=== PATIENT | female | born 2000 | race Two or more races ===

== ENCOUNTER 2024-02-29 19:35 | Emergency (ER) | payer MEDICAID, SELFPAY ==
[2024-02-29 19:36] VITALS: BMI 29.8
[2024-02-29 19:52] VITALS: BP 149/93; PULSE 104; RESP 19; TEMP 36.8; O2SAT 98
--- NOTE | 2024-02-29 20:06 | EDNOTE_ITS ---
ED Ear RME/HPI General Chief complaint: Ear Stated complaint: LUMP OM BACK OF LEFT EAR Time Seen by Provider: 02/29/24 20:03 Source: patient Arrival date/time: 02/29/24 19:35 23-year-old female presents emergency department complaining of left ear pain that started today. Patient denies any fever, chills, cough, nausea vomiting, sore throat, shortness of breath, or any other associated symptom. Mode of arrival: ambulatory Limitations: no limitations Related Data Home Medications ?Medication ?Instructions ?Recorded ?Confirmed vits no.124-ferrous fum tab 11/05/22 27 mg iron-folic acid 800 mcg tablet ( Vitamin) Previous Rx's ?Medication ?Instructions ?Recorded topiramate 25 mg tablet (Topamax) 25 mg PO QDAY #30 tabs 11/13/23 amoxicillin 875 mg-potassium 1 tab PO BID 7 days #14 tabs 02/29/24 clavulanate 125 mg tablet ofloxacin 0.3 % ear drops 10 drp otic (ear) QDAY 7 days #5 mL 02/29/24 Allergies Allergy/AdvReac Type Severity Reaction Status Date / Time No Known Allergies Allergy Verified 04/09/23 00:03 Review of Systems Review of Systems Systems Reviewed: All systems reviewed, normal except as documented Constitutional Constitutional: Reports system reviewed and no additional complaints, except as documented, Denies body ache(s), Denies chills and Denies fever(s) Eyes Eyes: Reports system reviewed and no additional complaints, except as documented and Denies change in vision ENT Ears, Nose, Mouth, and Throat: Reports system reviewed and no additional complaints, except as documented, Denies disequilibrium, Denies dizziness, Reports otalgia, Denies sore throat and Denies vertigo Cardiovascular Cardiovascular: Reports system reviewed and no additional complaints, except as documented, Denies chest pain and Denies dyspnea Respiratory Respiratory: Reports system reviewed and no additional complaints, except as documented, Denies chest congestion, Denies cough and Denies dyspnea Gastrointestinal Gastrointestinal: Reports system reviewed and no additional complaints, except as documented, Denies abdominal pain, Denies nausea and Denies vomiting Musculoskeletal Musculoskeletal: Reports system reviewed and no additional complaints, except as documented, Denies abnormal gait and Denies arthralgias Integumentary/Breasts Skin/Breast: Reports system reviewed and no additional complaints, except as documented, Denies erythema, Denies rash and Denies wounds Neurologic Neurologic: Reports system reviewed and no additional complaints, except as documented, Denies abnormal gait, Denies disequilibrium, Denies dizziness and Denies vertigo Past Medical History Past Medical History NEUROLOGIC: Negative Neurological Disorders CARDIAC: Negative Cardiac Disorders or Congestive Heart Failure RESPIRATORY: Positive Asthma; Negative Chronic Obstructive Pulmonary Disease (COPD) GASTROINTESTINAL: Negative Gastrointestinal Disorders GENITOURINARY: Negative Genitourinary Disorders or Renal Disease REPRODUCTIVE: Negative Pelvic Inflammatory Disease MUSCULOSKELETAL: Negative Musculoskeletal Disorders ENDOCRINE: Negative Endocrine Disorders, Diabetes Mellitus Type 1 or Diabetes Me llitus Type 2 HEMATOLOGIC: Negative Blood Disorders Social History SMOKING STATUS: Never smoker ED Exam General Limitations: Present no limitations General appearance: Present alert and in no apparent distress Head Head exam: Present atraumatic Eye Eye exam: Present normal appearance, PERRL and EOMI ENT ENT exam: Present normal exam, normal oropharynx and mucous membranes moist Expanded ENT Exam TM/Canal exam: Left TM: erythema, loss of landmarks, canal discharge and canal tenderness Neck Neck exam: Present normal inspection, full ROM and trachea midline Chest Chest inspection: Present normal inspection and symmetric chest wall rise Respiratory Respiratory exam: Present normal lung sounds bilaterally Cardiovascular Cardiovascular exam: Present regular rate, normal rhythm and normal heart sounds Abdominal Exam Abdominal exam: Present soft and normal bowel sounds Extremities Exam Extremities exam: Present normal inspection and full ROM Back Exam Back exam: Present normal inspection and full ROM Neurological Exam Neurological exam: Present alert, oriented X3 and CN II-XII intact Psychiatric Psychiatric exam: Present normal affect and normal mood Skin Skin exam: Present warm, dry, intact and normal color Course Quality Measures none Vital Signs Vital signs: Vital Signs Temperature 98.2 F 02/29/24 19:52 Pulse Rate 104 H 02/29/24 19:52 Respiratory Rate 19 02/29/24 19:52 Blood Pressure 149/93 H 02/29/24 19:52 Pulse Oximetry (%) 98 02/29/24 19:52 Oxygen Delivery Method Room Air 02/29/24 19:52 98% room air within normal limits Ear MDM Narrative MDM Narrative:: 23-year-old female presents emergency department complaining of left ear pain that started today. Patient denies any fever, chills, cough, nausea vomiting, sore throat, shortness of breath, or any other associated symptom. ENT exam consistent with left ear otitis media and otitis externa. Patient appears nontoxic and hemodynamically stable. Patient discharged home on oral antibiotic antibiotics and instructed to have close follow-up with primary care provider in 24 to 48 hours. Instructed to return to emergency department for any worsening symptoms or as needed. Patient data External records reviewed:: [facility] previous records Clinical information provided by:: patient Social determinants that could affect healthcare access:: none Patient has the following chronic illnesses:: Not applicable How is presenting disease/condition affected by chronic disease/condition?: no chronic disease Evaluation data The following diagnostics were reviewed and interpreted by me:: other (specify) (N/A) Lab and/or radiology exams considered but not ordered:: Considered but not ordered Interpretation Summary: N/A Medications / Prescriptions Medications or Prescriptions considered but not ordered:: Prescribed Medication administrations:: N/A Consultations Consultation(s) initiated? (list below): No Diagnosis Ear Differential Diagnosis: otitis externa and otitis media Most likely diagnosis given after review of the tests above:: Otitis externa Otitis media Admission Indicated Admission indicated?: not indicated Admission Request Was there a request for admission?: No Disposition Plan Disposition Plan: Discharge Discharge Attestation Discharge Attestation: The patient and all family members were given an opportunity to ask questions an d understood the discharge instructions. Discharge instructions specifically effects, indications for sooner follow up or return to the emergency department, and the expected course of current diagnosis. Patient condition: Stable Discharge Plan Plan Patient Disposition: HOME (Self Care) Disposition Comment: Stable Prescriptions/Referrals Prescriptions/Med Rec: New ofloxacin 0.3 % drops 10 drp otic (ear) QDAY 7 Days Qty: 5 0RF amoxicillin-pot clavulanate 875-125 mg tablet 1 tab PO BID 7 Days Qty: 14 0RF No Action Vitamin 27 mg iron- 800 mcg Tablet topiramate [Topamax] 25 mg tablet 25 mg PO QDAY Qty: 30 0RF Problem List Clinical Impression: Otitis media, Otitis externa Patient/Caregiver Discharge Instructions Discharge Activity: activity as tolerated Education Materials: Anatomy of the Ear Additional Instructions: Take medication as prescribed. Follow-up with primary care provider in 2 to 3 days for reevaluation of left ear. Return to emergency department for any worsening symptoms or as needed. Print Language: Albanian Stand Alone Forms: Winnie Award Info., Patient Portal Info Letter MD Attestation Attestation The patient was seen by the midlevel practitioner. I, the co-signing physician, was present during the entire ER visit. While I did not physically examine the patient, I was available for consultation as needed.
== END 2024-02-29 20:27 | disposition home or self-care (01) ==
LOC: SERX 20:39
PROVIDERS: Emergency Provider Emergency Medicine; PCP Family Medicine
DX: H66.92 Otitis media, unspecified, left ear (principal); H60.92 Unspecified otitis externa, left ear
CPT/HCPCS: 99281

== ENCOUNTER 2024-10-07 23:27 | Emergency (ER) | payer MEDICAID, SELFPAY ==
[2024-10-07 23:28] VITALS: BMI 31.6
[2024-10-07 23:50] VITALS: BP 136/88; PULSE 78; RESP 18; TEMP 36.9; O2SAT 100
--- NOTE | 2024-10-07 23:57 | PD.EDVAGBL ---
ED OB Contraction Preg RMI/HPI General Chief complaint: Abdominal Pain Stated complaint: 7WKS PREG LOW ABD PAIN Time Seen by Provider: 10/07/24 23:51 Arrival date/time: 10/07/24 23:27 RME / HPI RME / HPI Narrative: This section includes all my notes and documentations, including HPI, PE, and ED course. Seth Rai MD HPI: 23 y/o female presents with cramping and spotting x several days. LMP was 08/26/2024. Estimated gestational age 6 weeks. Denies fever, nausea, and vomiting. No other complaints. ROS: All negative except as documented in HPI. Physical Exam: General: Alert and oriented. No acute distress when remaining still. Eyes: Conjunctivae and lids clear. ENT: No nasal congestion. Neck: Supple. Heart: RRR. Lungs: No respiratory distress. Good air movement. No rhonchi, wheezing, rales. Abdomen: Soft and nontender. Normal bowel sounds. No distension. No rebound or guarding. Back: No CVA tenderness. Skin: Warm and dry. Neuro: Alert and oriented X 3. I reviewed all diagnostic test results: My review of the US report is IUP but no cardiac activity. Blood tests and urine tests unremarkable, except hCG 86529. At this point, diagnoses include: Threatened miscarriage. Recommended expectant management. Based on my best medical judgment, made decision no further evaluation or treatment indicated at this time. Patient understands and agrees to the discharge instructions customized and printed, see below. Discharge Instructions from Dr. Rai printed for you: 1.? After evaluation, your is inside the uterus. There is no ectopic ( outside the uterus). 2.? But there is no heart activity. We may be too early. 3.? Only time will tell what will happen. If your symptoms, including bleeding, worsen, you can have a miscarriage. If your symptoms stop, you can have successful . 4.? If you do have a miscarriage, we won't be able to save your baby. Under 20-24 weeks, we can't save the baby. 5.? No sexual activity until cleared by a doctor taking care of you. 6.? See a private doctor on 10/11/2024 for recheck and further care. Ask to review all test results and official radiology reports, to make sure you receive all necessary follow-ups and monitoring. Your hCG ( hormone level) was 19,477.? This doubles every 2 to 3 days in normal . 7.? Seek immediate medical care with intolerable pain, extremely heavy vaginal bleeding (soaking more than 3 pads per hour), or with any concerns. Seth Rai MD Last menstrual period: 08/26/24 Related Data Home Medications ?Medication ?Instructions ?Recorded ?Confirmed vits no.124-ferrous fum tab 11/05/22 27 mg iron-folic acid 800 mcg tablet ( Vitamin) Previous Rx's ?Medication ?Instructions ?Recorded topiramate 25 mg tablet (Topamax) 25 mg PO QDAY #30 tabs 11/13/23 Allergies Allergy/AdvReac Type Severity Reaction Status Date / Time No Known Allergies Allergy Verified 10/07/24 23:34 Review of Systems Review of Systems Systems Reviewed: All systems reviewed, normal except as documented Past Medical History Past Medical History RESPIRATORY: Positive Asthma ED Exam Narrative Physical exam: Refer to HPI above Course Quality Measures none Orders Category Date Time Status US OB <= 14 weeks fetus Stat Exams 10/08/24 04:31 Completed Beta HCG,Quantitative Stat Lab 10/07/24 23:52 Completed Bilirubin,Direct Stat Lab 10/07/24 23:52 Completed CBC Stat Lab 10/07/24 23:52 Completed CMP [Comprehensive Metabolic Panel] Stat Lab 10/07/24 23:52 Completed Free T4 (Free Thyroxine) Stat Lab 10/07/24 23:52 Completed Magnesium Stat Lab 10/07/24 23:52 Completed Rh Testing Only Stat Lab 10/07/24 23:52 Completed TSH [Thyroid Stimulating Hormone] Stat Lab 10/07/24 23:52 Completed UA, C/S IF [Urinalysis, C/S if Indicated] Stat Lab 10/08/24 05:09 Completed Vital Signs Vital signs: Vital Signs Temperature 98.4 F 10/07/24 23:50 Pulse Rate 78 10/07/24 23:50 Respiratory Rate 18 10/07/24 23:50 Blood Pressure 136/88 H 10/07/24 23:50 Pulse Oximetry (%) 100 10/07/24 23:50 Oxygen Delivery Method Room Air 10/07/24 23:50 Vaginal Bleeding MDM Narrative MDM Narrative: Scribe Attestation: I, Rosa Lomax, am scribing for and in the presence of Dr. Rai. Provider Notation: Although this document has been carefully reviewed, there may still be some phonetic and other typographical errors.? These errors are purely grammatical due to imperfections in the software program and should not be construed in any way to? compromise the substance of the patient's medical care during this visit. 23 y/o female presents with cramping and spotting x several days. LMP was 08/26/2024. Denies fever, nausea, and vomiting. No other complaints. Patient data External records reviewed:: [facility] previous records (Reviewed prior ED records from 02/29/24. Patient was seen for Otitis externa.) Clinical information provided by:: patient Social determinants that could affect healthcare access:: none Patient has the following chronic illnesses:: Asthma How is presenting disease/condition affected by chronic disease/condition?: uneffected by Evaluation data The following diagnostics were reviewed and interpreted by me:: lab results and radiology exam(s) Lab and/or radiology exams considered but not ordered:: None Interpretation Summary: I reviewed all diagnostic test results: My review of the US report is IUP but no cardiac activity. Blood tests and urine tests unremarkable, except hCG 17460. Medications / Prescriptions Medications or Prescriptions considered but not ordered:: None Medication administrations:: N/A Consultations Consultation(s) initiated? (list below): No Diagnosis Vaginal Bleeding Differential Diagnosis: missed , threatened , dysfunctional uterine bleeding, menometrorrhagia, incomplete , ectopic without intrauterine and vaginal bleeding Most likely diagnosis given after review of the tests above:: Threatened miscarriage. Admission Indicated Admission indicated?: not indicated Explain why admission is indicated or not indicated:: With no condition needing emergent intervention, there was no indiction for admission. Admission Request Was there a request for admission?: No Disposition Plan Disposition Plan: Discharge Discharge Attestation Discharge Attestation: The patient and all family members were given an opportunity to ask questions and understood the discharge instructions. Discharge instructions specifically effects, indications for sooner follow up or return to the emergency department, and the expected course of current diagnosis. Patient condition: Stable Discharge Plan Plan Patient Disposition: HOME (Self Care) Prescriptions/Referrals Prescriptions/Med Rec: No Action Vitamin 27 mg iron- 800 mcg Tablet topiramate [Topamax] 25 mg tablet 25 mg PO QDAY Qty: 30 0RF Referrals: No Primary/Family,Physician [Primary Care Provider] - In 1 week Problem List Clinical Impression: Threatened miscarriage Patient/Caregiver Discharge Instructions Discharge Activity: activity as tolerated Education Materials: ED Possible Miscarriage ... Additional Instructions: Discharge Instructions from Dr. Rai printed for you: 1.? After evaluation, your is inside the uterus. There is no ectopic ( outside the uterus). 2.? But there is no heart activity. We may be too early. 3.? Only time will tell what will happen. If your symptoms, including bleeding, worsen, you can have a miscarriage. If your symptoms stop, you can have successful . 4.? If you do have a miscarriage, we won't be able to save your baby. Under 20-24 weeks, we can't save the baby. 5.? No sexual activity until cleared by a doctor taking care of you. 6.? See a private doctor on 10/11/2024 for recheck and further care. Ask to review all test results and official radiology reports, to make sure you receive all necessary follow-ups and monitoring. Your hCG ( hormone level) was 19,477.? This doubles every 2 to 3 days in normal . 7.? Seek immediate medical care with intolerable pain, extremely heavy vaginal bleeding (soaking more than 3 pads per hour), or with any concerns. Print Language: Swedish Stand Alone Forms: Winnie Award Info., Patient Portal Info Letter
[2024-10-08 00:20] LABS: Basophils # (Auto) 0.1 Thou/mm3 (0.0-0.2); Basophils % (Auto) 1 % (0-2.5); Eosinophils # (Auto) 0.1 Thou/mm3 (0.0-0.5); Eosinophils % (Auto) 1 % (0-10); Hematocrit 34.1 % (36.0-46.0); Hemoglobin 11.9 g/dL (12.0-16.0); Immature Granulocytes % (Auto) 1 % (0-0); Immature Granulocytes Auto 0.05 Thou/mm3 (0.00-0.00); Lymphocytes # (Auto) 2.5 Thou/mm3 (1.0-4.8); Lymphocytes % (Auto) 23 % (10-50); Mean Corpuscular HGB Conc 34.9 g/dl (31.0-37.0); Mean Corpuscular Hemoglobin 27.9 pg (25.0-35.0); Mean Corpuscular Volume 80 fL (80-100); Monocytes # (Auto) 0.7 Thou/mm3 (0.0-0.8); Monocytes % (Auto) 6 % (0-12); Neutrophils # (Auto) 7.7 Thou/mm3 (1.8-7.7); Neutrophils % (Auto) 69 % (37-80); Nucleated Red Blood Cell % 0 /100 WBC (0); Platelet Count 307 Thou/mm3 (140-440); RDW Standard Deviation 38.7 fL (36.4-46.3); Red Blood Count 4.27 Miln/mm3 (4.00-5.20)
[2024-10-08 01:05] LABS: Alanine Aminotransferase 18 U/L (10-49); Albumin, Serum 4.6 gm/dL (3.5-5.0); Albumin/Globulin Ratio 2.3 (1.2-2.2); Alkaline Phosphatase 79 U/L (46-116); Anion Gap 8 (7-16); Aspartate Amino Transferase 14 U/L (0-34); BUN/Creatinine Ratio 15 Ratio (12-20); Bilirubin,Direct 0.1 mg/dL (0.0-0.3); Bilirubin,Total 0.4 mg/dL (0.3-1.2); Blood Urea Nitrogen 12 mg/dL (9-23); Carbon Dioxide 25.7 mMol/L (20.0-31.0); Chloride 102 mMol/L (98-107); Creatinine (Component) 0.8 mg/dL (0.6-1.3); Estimated Creatinine Clearance 118.6 mL/min (>60); Free T4 (Free Thyroxine) 1.11 ng/dL (0.89-1.76); Glucose 94 mg/dL (74-106); Osmolality,Calculated 271 (275-295); Sodium 136 mMol/L (136-145); Thyroid Stimulating Hormone 1.15 uIU/mL (0.55-4.78); Total Protein 6.6 gm/dL (5.7-8.2); eGFR > 60 See Note
[2024-10-08 01:55] LABS: Beta HCG,Quantitative 19477 mIU/mL (<5.0)
--- NOTE | 2024-10-08 04:31 | XR_ITS ---
Examination: Complete OB ultrasound, less than 14 weeks, transabdominal Date and time of exam: October 08, 2024 0441 hours INDICATIONS: Pelvic cramping beginning 2 days ago Technique: Obstetrical ultrasound images less than 14 weeks performed via transabdominal imaging Findings: Uterus 10.6 cm CRL 0.2 cm corresponds to 5 weeks 5 days gestational age No cardiac motion Right ovary 3.5 cm arterial flow No probably obscured by bowel gas IMPRESSION: Intrauterine gestation with pole corresponding to 5 weeks 5 days gestational age No cardiac motion Recommend short term follow-up transvaginal pelvic sonography to confirm viability.
[2024-10-08 05:08] VITALS: BP 141/98; PULSE 84; RESP 16; TEMP 36.7; O2SAT 100
[2024-10-08 05:19] LABS: Collection Type, Urine Clean Catch
[2024-10-08 05:26] LABS: Bilirubin,Urine Negative (Negative); Blood,Urine Negative (Negative); Clarity,Urine Clear (Clear/Hazy); Color,Urine Lt-Yellow (Lt Yel-Yel); Culture Indicated,Urine Not Indicated; Glucose, Urine Negative (Negative); Ketones,Urine Negative (Negative); Leukocyte Esterase,Urine Positive (Negative); Nitrite,Urine Negative (Negative); PH,Urine 5.5 (5.0-7.0); Protein,Urine Negative (Neg - Trace); RBC,Urine 4 /hpf (0-3); Specific Gravity,Urine 1.026 (1.001-1.035); Squamous Epithelial Cell,Urine 2 /hpf (0-5); Urobilinogen,Urine Negative mg/dL (0.0-1.0); WBC,Urine 7 /hpf (0-5)
--- NOTE | 2024-10-08 05:48 | PRELIM_ITS ---
Obstetric ultrasound (transabdominal). October 08, 2024 at 0441 hours Clinical history: Cramping (GA 6 weeks). Comparison: No prior study is available for comparison. Findings: There is an intrauterine gestational sac with a single fetus of mean gestational age 5 weeks and 5 days (CRL= 0.21cm). No cardiac activity is present at this time. The yolk sac is demonstrated measuring 0.32 cm. The uterus measures 9.9 x 4.6 x 5.6 cm. The right ovary measures 3.4 x 2.1 x 2.8 cm and is unremarkable. The left ovary not visualized. There is no free fluid in the pelvis. Impression: Intrauterine gestational sac with a single fetus of mean gestational age 5 weeks and 5 days. No cardiac activity identified at this time. This may be related to the early stage of gestation. Recommend follow up for viability. Report Electronically Signed By: Dai Calixto 10/08/2024 5:48:04 AM [EST]
== END 2024-10-08 05:15 | disposition home or self-care (01) ==
PROVIDERS: Emergency Provider Emergency Medicine
DX: O20.0 Threatened abortion (principal); Z3A.01 Less than 8 weeks gestation of pregnancy
CPT/HCPCS: 36415; 76801; 80053; 81001; 82248; 83735; 84439; 84443; 84702; 85025; 86901; 99284

== ENCOUNTER → 2024-10-25 | Outpatient (CLI) | payer MEDICAID, SELFPAY ==
--- NOTE | 2024-10-25 10:46 | XR_ITS ---
Examination: Complete OB ultrasound, less than 14 weeks, transabdominal Date and time of exam: October 25, 2024 1106 hours INDICATIONS: No cardiac motion on ultrasound examination October 08, 2024 Technique: Obstetrical ultrasound images less than 14 weeks performed via transabdominal imaging Findings: A normal shaped single intrauterine gestation is present in the uterus. pole 2.3 cm corresponds to 9 week 0 day gestational age Cardiac motion 171 BPM Ultrasonographic survey of visible and placental structures unremarkable. Amniotic fluid volume appears appropriate for this estimated gestational age. Right ovary 3.1 cm arterial flow. Left ovary 3.4 cm arterial flow IMPRESSION: Viable intrauterine gestation 9 weeks 0 days.
--- NOTE | 2024-10-25 10:46 | XR_ITS ---
Examination: OB Transvaginal ultrasound of the pelvis, complete Technique: Transvaginal sonographic images pelvis performed using lima scale imaging Exam date and time: October 25, 2024 1117 hours INDICATIONS: No cardiac motion on ultrasound October 08, 2024 FINDINGS: Uterus 10.0 cm pole 2.3 cm corresponds to 9 week 0 day gestational age Cardiac motion 176 BPM Right ovary 3.5 cm arterial flow. Left ovary 3.3 cm arterial flow IMPRESSION: Viable intrauterine gestation 9 weeks 0 days.
== END | disposition home or self-care (01) ==
PROVIDERS: PCP Family Medicine; Referring Provider Obstetrics & Gynecology; Visit Provider Obstetrics & Gynecology
DX: O36.80X0 Pregnancy with inconclusive fetal viability, not applicable or unspecified (principal); Z3A.09 9 weeks gestation of pregnancy
CPT/HCPCS: 76801; 76817

== ENCOUNTER 2024-11-08 21:38 | Emergency (ER) | payer MEDICAID, SELFPAY ==
[2024-11-08 21:40] VITALS: BMI 29.9
[2024-11-08 22:52] VITALS: BP 135/87; PULSE 89; RESP 18; TEMP 36.9; O2SAT 98
--- NOTE | 2024-11-08 23:06 | XR_ITS ---
Examination: Complete OB ultrasound, less than 14 weeks, transabdominal Date and time of exam: November 08, 2024 11:34 PM INDICATIONS: Patient fell 2 hours ago with injury to the pelvis, pelvic pain Technique: Obstetrical ultrasound images less than 14 weeks performed via transabdominal imaging Findings: A normal shaped single intrauterine gestation is present in the uterus. CRL 3.8 cm corresponds to 10 weeks 4 days gestational age Cardiac motion 182 bpm Subchorionic hemorrhage 10 x 5 x 6 mm Ultrasonographic survey of visible and placental structures unremarkable. Amniotic fluid volume appears appropriate for this estimated gestational age. Right ovary 3.3 cm arterial flow Left ovary 3.7 cm arterial flow IMPRESSION: Viable intrauterine gestation 10 weeks 4 days Small adjacent subchorionic hemorrhage 10 x 5 x 6 mm.
--- NOTE | 2024-11-09 00:01 | EDNOTE_ITS ---
<Statement entered by Cathie Gray MD - 11/09/24 02:09> As co-signing physician, I was present and available for consult prn. I concur with the plan and care as documented by the midlevel provider. ED OB Contraction Preg RMI/HPI General Chief complaint: Fall Stated complaint: 11 WKS PREG FALL ABD PAIN Time Seen by Provider: 11/08/24 23:06 Arrival date/time: 11/08/24 21:38 23F with no significant PMH presents to ED with ab pain after she tripped and fell on it. Patient is 11 weeks but denies vaginal bleeding. Limitations: no limitations Related Data Home Medications ?Medication ?Instructions ?Recorded ?Confirmed vits no.124-ferrous fum tab 11/05/22 27 mg iron-folic acid 800 mcg tablet ( Vitamin) Previous Rx's ?Medication ?Instructions ?Recorded topiramate 25 mg tablet (Topamax) 25 mg PO QDAY #30 ta bs 11/13/23 Allergies Allergy/AdvReac Type Severity Reaction Status Date / Time No Known Allergies Allergy Verified 11/08/24 21:45 Review of Systems Review of Systems Systems Reviewed: All systems reviewed, normal except as documented Constitutional Constitutional: Reports system reviewed and no additional complaints, except as documented, Denies fever(s) and Denies headache(s) ENT Ears, Nose, Mouth, and Throat: Denies disequilibrium and Denies headache(s) Cardiovascular Cardiovascular: Reports system reviewed and no additional complaints, except as documented, Denies chest pain and Denies dyspnea Respiratory Respiratory: Reports system reviewed and no additional complaints, except as documented, Denies cough and Denies dyspnea Gastrointestinal Gastrointestinal: Reports system reviewed and no additional complaints, except as documented, Reports as per HPI, Reports abdominal pain, Denies nausea and Denies vomiting Neurologic Neurologic: Reports system reviewed and no additional complaints, except as documented, Denies confusion, Denies disequilibrium and Denies headache(s) Psychiatric Psychiatric: Denies confusion Past Medical History Past Medical History NEUROLOGIC: Negative Neurological Disorders CARDIAC: Negative Cardiac Disorders or Congestive Heart Failure RESPIRATORY: Positive Asthma; Negative Chronic Obstructive Pulmonary Disease (COPD) GASTROINTESTINAL: Negative Gastrointestinal Disorders GENITOURINARY: Negative Genitourinary Disorders or Renal Disease REPRODUCTIVE: Negative Pelvic Inflammatory Disease MUSCULOSKELETAL: Negative Musculoskeletal Disorders ENDOCRINE: Negative Endocrine Disorders, Diabetes Mellitus Type 1 or Diabetes Mellitus Type 2 HEMATOLOGIC: Negative Blood Disorders Social History SMOKING STATUS: Never smoker ED Exam General Limitations: Present no limitations General appearance: Present alert and in no apparent distress Head Head exam: Present atraumatic Eye Eye exam: Present normal appearance, PERRL and EOMI ENT ENT exam: Present normal exam, normal oropharynx and mucous membranes moist Neck Neck exam: Present normal inspection, full ROM and trachea midline Chest Chest inspection: Present normal inspection and symmetric chest wall rise Respiratory Respiratory exam: Present normal lung sounds bilaterally Cardiovascular Cardiovascular exam: Present regular rate, normal rhythm and normal heart sounds Abdominal Exam Abdominal exam: Present soft and normal bowel sounds Extremities Exam Extremities exam: Present normal inspection and full ROM Back Exam Back exam: Present normal inspection and full ROM Neurological Exam Neurological exam: Present alert, oriented X3 and CN II-XII intact Psychiatric Psychiatric exam: Present normal affect and normal mood Skin Skin exam: Present warm, dry, intact and normal color Course Quality Measures none Orders Category Date Time Status US OB <= 14 weeks fetus Stat Exams 11/08/24 23:06 Completed Vital Signs Vital signs: Vital Signs Temperature 98.4 F 11/08/24 22:52 Pulse Rate 89 11/08/24 22:52 Respiratory Rate 18 11/08/24 22:52 Blood Pressure 135/87 H 11/08/24 22:52 Pulse Oximetry (%) 98 11/08/24 22:52 Oxygen Delivery Method Room Air 11/08/24 22:52 O2 at 98% on RA and WNLs OB/Uterine Contractions MDM Narrative MDM Narrative:: 23F with no significant PMH presents to ED with ab pain after she tripped and fell on it. Patient is 11 weeks but denies vaginal bleeding. Physical exam reveals well-appearing female. Patient is afebrile, calm, and alert. US reveals normal IUP with normal FHR. Small subchorionic hemorrhage not seen on previous US. Clam Picker given. Patient data External records reviewed:: [facility] previous records Clinical information provided by:: patient Social determinants that could affect healthcare access:: none Patient has the following chronic illnesses:: none How is presenting disease/condition affected by chronic disease/condition?: no chronic disease Evaluation data The following diagnostics were reviewed and interpreted by me:: radiology exam(s) Lab and/or radiology exams considered but not ordered:: ordered Interpretation Summary: above Medications / Prescriptions Medications or Prescriptions considered but not ordered:: not ordered Medication administrations:: n/a Consultations Consultation(s) initiated? (list below): No Diagnosis OB Contractions Differential Diagnosis: normal delivery at term, hemorrhage, -induced hypertension, premature labor, pre-eclampsia, eclampsia and other (subchorionic hemorrhage) Most likely diagnosis given after review of the tests above:: subchorionic hemorrhage Admission Indicated Admission indicated?: not indicated Explain why admission is indicated or not indicated:: outpatient Admission Request Was there a request for admission?: No Disposition Plan Disposition Plan: Discharge Discharge Attestation Discharge Attestation: The patient and all family members were given an opportunity to ask questions and understood the discharge instructions. Discharge instructions specifically effects, indications for sooner follow up or return to the emergency department, and the expected course of current diagnosis. Patient condition: Stable Discharge Plan Plan Patient Disposition: HOME (Self Care) Discharge Disposition comment: Stable Prescriptions/Referrals Prescriptions/Med Rec: No Action Vitamin 27 mg iron- 800 mcg Tablet topiramate [Topamax] 25 mg tablet 25 mg PO QDAY Qty: 30 0RF Referrals: No Primary/Family,Physician [Primary Care Provider] - In 1 week Problem List Clinical Impression: Subchorionic hemorrhage Patient/Caregiver Discharge Instructions Education Materials: Bleeding During Early Additional Instructions: Please follow-up with PCP/OBYGN within 24-48 hours and return immediately if symptoms worsen. Print Language: Amharic Stand Alone Forms: Patient Portal Info Letter FILIPPO/JUAN Supervising Physician FILIPPO/JUAN Supervising Physician: Dr. Gray
== END 2024-11-09 00:28 | disposition home or self-care (01) ==
PROVIDERS: Emergency Provider Emergency Medicine
DX: O20.9 Hemorrhage in early pregnancy, unspecified (principal); Z3A.11 11 weeks gestation of pregnancy
CPT/HCPCS: 76801; 99282

== ENCOUNTER 2024-12-16 15:11 | Emergency (ER) | payer MEDICAID, SELFPAY ==
[2024-12-16 15:11] VITALS: BMI 30.6
[2024-12-16 15:53] VITALS: BP 125/74; PULSE 89; RESP 16; TEMP 37.1; O2SAT 100
--- NOTE | 2024-12-16 15:59 | EDNOTE_ITS ---
ED Abdominal Pain RME/HPI General Chief Complaint: Abdominal Pain Stated complaint: 14WK PREG ABD CRAMPS Time seen by provider: 12/16/24 15:41 Arrival date/time: 12/16/24 15:11 RME / HPI RME / HPI narrative: 24-year-old female patient with no past medical history, came in for evaluation regarding pelvic cramping. Patient was playing with her 2-year-old toddler, accidentally kicked pelvic area, now complaining of pain described as dull ache, 70 mild. Patient is denying any vaginal bleeding or spotting. Denies any vomiting denies any fever denies any other complaints no medication was taken prior to arrival. Patient was seen here a month ago and was told to have single live intrauterine gestation with small subchorionic hemorrhage. Saw [facility] 4 days ago and was told that the patient fetus is having a good heartbeat. Related Data Home Medications ?Medication ?Instructions ?Recorded ?Confirmed vits no.124-ferrous fum tab 11/05/22 27 mg iron-folic acid 800 mcg tablet ( Vitamin) Previous Rx's ?Medication ?Instructions ?Recorded topiramate 25 mg tablet (Topamax) 25 mg PO QDAY #30 ta bs 11/13/23 Allergies Allergy/AdvReac Type Severity Reaction Status Date / Time No Known Allergies Allergy Verified 11/08/24 21:45 Review of Systems Review of Systems Narrative Review of Systems: Review of system reviewed and within normal limits except mentioned in HPI ED Exam Narrative Physical exam: VITAL SIGNS: Reviewed. GENERAL APPEARANCE: Alert and interactive, follows commands, no acute distress, HEAD AND FACE: Non-traumatic. ENT: PERRL, pink conjunctivitis, eyelid no trauma, Mucous membrane moist. NECK: Supple, nontender, no nuchal rigidity. CHEST: No tenderness, no crepitus, no paradoxical movement, no retractions. LUNGS: Clear, well ventilated, symmetric, no rales, no wheezing, no ronchi, no stridor, good breath sounds bilaterally. HEART: Regular rate, regular rhythm, no murmur, no gallops. ABDOMEN: Soft, positive bowel sounds, nondistended, no guarding, nontender, no rebound, no masses, RECTAL: Deferred. GENITAL: Deferred. NEUROLOGICAL: Gross motor function intact sensory function intact, Appropriate for age. MUSCULOSKELETAL: low back nontender, full range of motion. EXTREMITIES: Nontender, full range of motion. SKIN: Color pink, dry, no rash, no lacerations, no abrasions, no contusions. LYMPHATICS: Deferred. Course Quality Measures none Orders Category Date Time Status UA, C/S IF [Urinalysis, C/S if Indicated] Stat Lab 12/16/24 17:00 Completed Vital Signs Vital signs: Vital Signs Temperature 98.7 F 12/16/24 15:53 Pulse Rate 89 12/16/24 15:53 Respiratory Rate 16 12/16/24 15:53 Blood Pressure 125/74 12/16/24 15:53 Pulse Oximetry (%) 100 12/16/24 15:53 Oxygen Delivery Method Room Air 12/16/24 15:53 Abdominal Pain MDM MDM Narrative MDM Narrative:: 24-year-old female patient with no past medical history, came in for evaluation regarding pelvic cramping. Patient was playing with her 2-year-old toddler, accidentally kicked pelvic area, now complaining of pain described as dull ache, 70 mild. Patient is denying any vaginal bleeding or spotting. Denies any vomiting denies any fever denies any other complaints no medication was taken prior to arrival. Patient was seen here a month ago and was told to have single live intrauterine gestation with small subchorionic hemorrhage. Saw [facility] 4 days ago and was told that the patient fetus is having a good heartbeat. Urinalysis no UTI or hematuria. Repeat ultrasound is not that this time patient is not having any vaginal bleeding or spotting. Prior to discharge patient pelvic pain is totally gone. No medication was taken prior to arrival. Patient data External records reviewed:: None Clinical information provided by:: none Social determinants that could affect healthcare access:: none Patient has the following chronic illnesses:: None How is presenting disease/condition affected by chronic disease/condition?: no chronic disease Evaluation data The following diagnostics were reviewed and interpreted by me:: lab results Lab and/or radiology exams considered but not ordered:: None Interpretation Summary: Urinalysis no UTI Medications / Prescriptions Medications or Prescriptions considered but not ordered:: None Medication administrations:: None Consultations Consultation(s) initiated? (list below): No Diagnosis Differential diagnosis abdominal pain: other (Pelvic pain, UTI, first trimester) Most likely diagnosis given after review of the tests above:: Pelvic pain, first trimester Admission Indicated Admission indicated?: not indicated Admission Request Was there a request for admission?: No Disposition Plan Disposition Plan: Discharge Discharge Attestation Discharge Attestation: The patient and all family members were given an opportunity to ask questions and understood the discharge instructions. Discharge instructions specifically effects, indications for sooner follow up or return to the emergency department, and the expected course of current diagnosis. Patient condition: Stable Discharge Plan Plan Patient Disposition: HOME (Self Care) Discharge Disposition comment: Stable Prescriptions/Referrals Prescriptions/Med Rec: No Action Vitamin 27 mg iron- 800 mcg Tablet topiramate [Topamax] 25 mg tablet 25 mg PO QDAY Qty: 30 0RF Referrals: No Primary/Family,Physician [Primary Care Provider] - In 1 week Problem List Clinical Impression: Currently , Pelvic pain Patient/Caregiver Discharge Instructions Discharge Activity: activity as tolerated Education Materials: First Trimester Additional Instructions: Thank you for the opportunity for serving you today. You are stable for discharged . You are advised to: Follow-up with your PCP in 1 to 2 days Return to ED for worsening of symptoms Increase oral fluids You may take Tylenol as needed for pain Print Language: Tamazight Stand Alone Forms: Winnie Award Info., Patient Portal Info Letter PA/JUAN Supervising Physician FILIPPO/JUAN Supervising Physician: MD Thien
[2024-12-16 17:13] LABS: Collection Type, Urine Clean Catch
[2024-12-16 17:50] LABS: Amorphous Crystals,Urine Present (Absent); Bilirubin,Urine Negative (Negative); Blood,Urine Negative (Negative); Clarity,Urine Clear (Clear/Hazy); Color,Urine Lt-Yellow (Lt Yel-Yel); Culture Indicated,Urine Not Indicated; Glucose, Urine Negative (Negative); Hyaline Casts,Urine < 1 /hpf (0-1); Ketones,Urine Negative (Negative); Leukocyte Esterase,Urine Positive (Negative); Nitrite,Urine Negative (Negative); PH,Urine 6.5 (5.0-7.0); Protein,Urine Negative (Neg - Trace); RBC,Urine < 1 /hpf (0-3); Specific Gravity,Urine 1.013 (1.001-1.035); Squamous Epithelial Cell,Urine 1 /hpf (0-5); Urobilinogen,Urine Negative mg/dL (0.0-1.0); WBC,Urine 3 /hpf (0-5)
[2024-12-16 18:28] VITALS: BP 114/72; PULSE 78; RESP 18
== END 2024-12-16 18:30 | disposition home or self-care (01) ==
PROVIDERS: Nurse Practitioner Family; Emergency Provider Family Medicine
DX: O26.892 Other specified pregnancy related conditions, second trimester (principal); R10.2 Pelvic and perineal pain; Z3A.14 14 weeks gestation of pregnancy
CPT/HCPCS: 81001; 99282

== ENCOUNTER → 2025-02-12 | Outpatient (AMB) | payer MEDICAID, SELFPAY ==
[2025-02-12 09:00] VITALS: BP 116/81; PULSE 93; RESP 18; TEMP 36.2; O2SAT 98; BMI 33.7
--- NOTE | 2025-02-12 09:00 | AMB.OBVISIT ---
Vital Signs 02/12/25 09:00 Height 1.65 m Height Method Stated Weight 91.852 kg Weight Measurement Method Standing Scale BMI 33.7 BP 116/81 Blood Pressure Source Automatic Cuff Blood Pressure Location Left Upper Arm Position Sitting Respiration 18 Pulse 93 Pulse Source Monitor Temp 97.2 F Temp Source Oral Pulse Oximetry (%) 98 Oxygen Delivery Method Room Air Allergies/Home Meds Allergies & Medications Allergies No Known Allergies Allergy (Verified 02/12/25 09:01) Medication Reconciliation vitamins no.2 162 mg-115.2 mg (106 mg)-1 mg capsule 1 cap PO QDAY vitamins 01/14/25 [History Confirmed 02/12/25] Intake Visit Data Collection New Patient or Established: Established Patient (seen at [facility] within 3 years) Reason for Visit:: OBC Seen by Clinical Staff ONLY (RN/MA): No Breeding Manager Required: No Do You Feel Safe at Home: Yes Authorities Contacted: N/A PCP or OBGYN visit in last 3 months: Yes Date of Last PCP or OBGYN visit: 01/15/25 Hx Now: Yes Are you currently on any form of Control: No Pain Present Currently: No Pain Scale Used: Rosario-Morelos/Numerical Pain scale:: 0 Smoking Status Smoking Status: Never smoker Immunizations Flu Vaccine in the Last 12 Months: No Flu Vaccine Exclusion Criteria: No Exclusion Criteria Questionnaires Covid-19 Vaccine Questionnaire Has patient been vacinated for Covid-19 Have you been vacinated for Covid-19: Yes PHQ-9 PHQ-2 Over the last 2 weeks, how often have you been bothered by any of the following problems? 1. Little interest or pleasure in doing things: not at all 2. Feeling down, depressed, or hopeless: not at all Total score: 0 PHQ-9 3. Trouble falling or staying asleep, or sleeping too much: Not at all 4. Feeling tired or having little energy: Not at all 5. Poor appetite or overeating: Not at all 6. Feeling bad about yourself - or that you are a failure or have let yourself or your family down: Not at all 7. Trouble concentrating on things, such as reading the newspaper or watching television: Not at all 8. Moving or speaking so slowly that other people could have noticed? - Or the opposite - being so fidgety or restless that you have been moving around a lot more than usual: not at all 9. Thoughts that you would be better off or of hurting yourself in some way: Not at all Total score: 0 If you checked off any problems, how difficult have these problems made it for you to do your work, take care of things at home, or get along with other people?: not difficult at all Source: Developed by Drs. Mihir Shah, Kirsten Patel, Ruy Vizcarra and colleagues, with an educational moustapha from [employer]. Depression screen completed yes Social History Living Situation History Lives With: Family Housing: House Tobacco History Smoking Status: Never smoker Second Hand Smoke Exposure: No Alcohol History Alcohol Intake: Never Domestic Abuse History Do You Feel Safe at Home: Yes Care OB Visit Log OB Flowsheet Initial Weight: Not Recorded Date <del>?</del> EGA Weight BP Alb Glu CTX Pres Fundal ht FHR Mov Dilation Station Effacement Hx Notes Visit Note 11/13/24 <del>?</del> 11w 2d 83.971 kg 130/89 absent unknown 12 145 absent This is a 23-year-old 2 para 1 for ER follow-up. Patient was seen at [facility] for early vaginal bleeding. She was told she had a subchorionic hemorrhage patient denies any bleeding at this time. The report for ultrasound and visit are still pending. Denies cramps denies leaking fluid. Patient did not get her labs as ordered. NIPT and carrier screen today. Discussed SAB precautions and rest. Schedule appointment at [facility] for anatomy scan. Continue prenatals. Comfort measures for nausea. Return in 4 weeks for recheck 12/11/24 <del>?</del> 15w 2d 83.688 kg 131/87 occasional unknown 15 145 active No bleeding today. Denies leaking. Denies contractions. Complains of increased ligament pain. Reports slight movement. Follow-up MFM is in 4 weeks for anatomy scan. SAB precautions reviewed. No sex or heavy lifting. I filled out a form for her [employer] aFP today. Keep follow-up appointment with [facility] for anatomy scan. Return in 4 weeks OB check 01/15/25 <del>?</del> 20w 2d 87.146 kg 123/83 absent unknown 20 146 absent No cramps. Patient was seen in labor and delivery she hit her back. No cramps or bleeding now reports light movement. Patient has MFM appointment this week. Discussed AFP. MFM appointment this week. Discussed labor precautions. Return week for OBC NANCI Calculator Estimated Delivery Date Method Current WG Current Estimate 06/02/25 LMP (Certain) 24w 2d Other Estimates 06/05/25 Ultrasound #1 23w 6d Notes Visit Date: 01/15/25 Last Updated by: Qian Partida CNM 01/15: AFP Visit Date: 12/11/24 Last Updated by: Qian Partida CNM NIPT/CF/SMA-. NIPT- 11/03: girl Visit Date: 11/13/24 Last Updated by: Qian Partida CNM 23 yo . LMP 08/26/24. EDC 06/02/25. OB panel: O+,abs-, rpr;;NR, rub imm, hbsag-,hiv-,hc-, GC/CT-, UT-,UA-, / Office Procedures OBC Clinic LOC & Office Proc's Nursing/Assessment Patient Status: Established Patient OB Clinic Nursing Assessment: Medication Reconciliation, Update PMH in EMR and Vital Signs OB Clinic Coordination of Care: Consent,records obtained, informed consent, Education Simp Pt/Fam, Lab and Imaging orders, Results/Orders obtained and Staff clarify orders Special Needs: Heart tones Established Patient Charge Established Patient Point Assignment: 110 Established Patient Point Charge: EP Level 3 (80-115)
== END | disposition home or self-care (01) ==
LOC: HODSOBC 08:48
PROVIDERS: Supervising Provider Advanced Practice Midwife; Visit Provider Advanced Practice Midwife
DX: Z34.82 Encounter for supervision of other normal pregnancy, second trimester (principal); Z3A.24 24 weeks gestation of pregnancy
CPT/HCPCS: 99213; G0463

== ENCOUNTER 2025-03-04 13:22 | Observation (INO) | payer MEDICAID, SELFPAY ==
[2025-03-04 13:52] VITALS: BP 119/74; PULSE 91
[2025-03-04 14:10] VITALS: BP 109/56; PULSE 92
[2025-03-04 14:25] VITALS: BP 116/60; PULSE 91
[2025-03-04 14:30] VITALS: BP 119/74; PULSE 91; RESP 16; RESP 99; TEMP 36.8; BMI 33.7
== END 2025-03-04 14:50 | disposition home or self-care (01) ==
PROVIDERS: Admitting Provider Obstetrics & Gynecology; Visit Provider Obstetrics & Gynecology
DX: O26.899 Other specified pregnancy related conditions, unspecified trimester (principal); Z3A.00 Weeks of gestation of pregnancy not specified; R10.9 Unspecified abdominal pain; R42 Dizziness and giddiness; R51.9 Headache, unspecified
CPT/HCPCS: 59025; 59899

== ENCOUNTER 2025-03-12 20:02 | Observation (INO) | payer MEDICAID, SELFPAY ==
[2025-03-12] VITALS (59 sets, daily range): BP systolic 96–126; BP diastolic 53–81; PULSE 89–106; RESP 18–98; TEMP 37.2; O2SAT 96–100; BMI 34.9
[2025-03-12] MEDS: DIPHENOXYLATE/ATROP SULF 1 TAB PO (21:23)
[2025-03-12] MEDS: RINGERS LACTATED 1000 ML 1,000 ML 999 ML IV (21:23)
[2025-03-12] MEDS: RINGERS LACTATED 1000 ML 1,000 ML 125 ML IV (22:30)
[2025-03-12 22:46] LABS: Basophils # (Auto) 0.0 Thou/mm3 (0.0-0.2); Basophils % (Auto) 0 % (0-2.5); Eosinophils # (Auto) 0.1 Thou/mm3 (0.0-0.5); Eosinophils % (Auto) 1 % (0-10); Hematocrit 26.8 % (36.0-46.0); Hemoglobin 9.2 g/dL (12.0-16.0); Immature Granulocytes Auto 0.17 Thou/mm3 (0.00-0.00); Lymphocytes # (Auto) 2.1 Thou/mm3 (1.0-4.8); Lymphocytes % (Auto) 18 % (10-50); Mean Corpuscular HGB Conc 34.3 g/dl (31.0-37.0); Mean Corpuscular Hemoglobin 28.6 pg (25.0-35.0); Mean Corpuscular Volume 83 fL (80-100); Monocytes # (Auto) 0.7 Thou/mm3 (0.0-0.8); Monocytes % (Auto) 6 % (0-12); Neutrophils # (Auto) 8.4 Thou/mm3 (1.8-7.7); Neutrophils % (Auto) 73 % (37-80); Nucleated Red Blood Cell # 0.00 Thou/mm3 (0.00-0.00); Nucleated Red Blood Cell % 0 /100 WBC (0); Platelet Count 275 Thou/mm3 (140-440); RDW Standard Deviation 41.5 fL (36.4-46.3); Red Blood Count 3.22 Miln/mm3 (4.00-5.20); White Blood Count 11.5 Thou/mm3 (3.6-11.0)
[2025-03-12 23:03] LABS: Alanine Aminotransferase 9 U/L (10-49); Albumin, Serum 3.9 gm/dL (3.5-5.0); Albumin/Globulin Ratio 1.9 (1.2-2.2); Alkaline Phosphatase 85 U/L (46-116); Anion Gap 12 (7-16); Aspartate Amino Transferase 11 U/L (0-34); BUN/Creatinine Ratio 15 Ratio (12-20); Bilirubin,Total 0.3 mg/dL (0.3-1.2); Blood Urea Nitrogen 6 mg/dL (9-23); Calcium 9.7 mg/dL (8.3-10.6); Calcium (Corrected) 9.8 mg/dL (8.5-10.1); Carbon Dioxide 24.5 mMol/L (20.0-31.0); Chloride 105 mMol/L (98-107); Creatinine (Component) 0.4 mg/dL (0.6-1.3); Estimated Creatinine Clearance 247.5 mL/min (>60); Globulin 2.1 gm/dL (2.3-3.5); Glucose 94 mg/dL (74-106); Osmolality,Calculated 278 (275-295); Potassium 3.2 mMol/L (3.4-5.1); Sodium 141 mMol/L (136-145); Total Protein 6.0 gm/dL (5.7-8.2); eGFR > 60 See Note
[2025-03-13] VITALS: PULSE 104; O2SAT 99
== END 2025-03-13 00:20 | disposition home or self-care (01) ==
PROVIDERS: Admitting Provider Obstetrics & Gynecology; PCP Family Medicine; Visit Provider Obstetrics & Gynecology
DX: O26.893 Other specified pregnancy related conditions, third trimester (principal); Z3A.28 28 weeks gestation of pregnancy; R19.7 Diarrhea, unspecified; R25.2 Cramp and spasm
CPT/HCPCS: 36415; 59025; 59899; 80053; 85025; J7120; A9270

== ENCOUNTER 2025-03-17 01:22 | Observation (INO) | payer MEDICAID, SELFPAY ==
[2025-03-17] VITALS (11 sets, daily range): BP systolic 107–125; BP diastolic 57–79; PULSE 82–88; RESP 16–98; TEMP 36.6; BMI 35.6
[2025-03-17] MEDS: SODIUM CHLORIDE 0.9% 1000 ML 1,000 ML 999 ML IV (02:57)
[2025-03-17 03:29] LABS: Basophils # (Auto) 0.0 Thou/mm3 (0.0-0.2); Basophils % (Auto) 0 % (0-2.5); Eosinophils # (Auto) 0.1 Thou/mm3 (0.0-0.5); Eosinophils % (Auto) 1 % (0-10); Hematocrit 26.6 % (36.0-46.0); Hemoglobin 8.9 g/dL (12.0-16.0); Immature Granulocytes Auto 0.23 Thou/mm3 (0.00-0.00); Lymphocytes # (Auto) 2.1 Thou/mm3 (1.0-4.8); Lymphocytes % (Auto) 19 % (10-50); Mean Corpuscular HGB Conc 33.5 g/dl (31.0-37.0); Mean Corpuscular Hemoglobin 27.8 pg (25.0-35.0); Mean Corpuscular Volume 83 fL (80-100); Monocytes # (Auto) 0.8 Thou/mm3 (0.0-0.8); Monocytes % (Auto) 7 % (0-12); Neutrophils # (Auto) 8.1 Thou/mm3 (1.8-7.7); Neutrophils % (Auto) 71 % (37-80); Nucleated Red Blood Cell # 0.00 Thou/mm3 (0.00-0.00); Nucleated Red Blood Cell % 0 /100 WBC (0); Platelet Count 249 Thou/mm3 (140-440); RDW Standard Deviation 41.1 fL (36.4-46.3); Red Blood Count 3.20 Miln/mm3 (4.00-5.20); White Blood Count 11.4 Thou/mm3 (3.6-11.0)
[2025-03-17] MEDS: SODIUM CHLORIDE 0.9% 1000 ML 1,000 ML 125 ML IV (03:30)
[2025-03-17 03:51] LABS: Alanine Aminotransferase 8 U/L (10-49); Albumin, Serum 3.8 gm/dL (3.5-5.0); Albumin/Globulin Ratio 1.8 (1.2-2.2); Alkaline Phosphatase 75 U/L (46-116); Anion Gap 9 (7-16); Aspartate Amino Transferase 10 U/L (0-34); BUN/Creatinine Ratio 13 Ratio (12-20); Bilirubin,Total 0.3 mg/dL (0.3-1.2); Blood Urea Nitrogen < 5 mg/dL (9-23); Calcium 9.3 mg/dL (8.3-10.6); Calcium (Corrected) 9.5 mg/dL (8.5-10.1); Carbon Dioxide 24.2 mMol/L (20.0-31.0); Chloride 108 mMol/L (98-107); Creatinine (Component) 0.4 mg/dL (0.6-1.3); Estimated Creatinine Clearance 250.2 mL/min (>60); Globulin 2.1 gm/dL (2.3-3.5); Glucose 117 mg/dL (74-106); Osmolality,Calculated 279 (275-295); Potassium 3.4 mMol/L (3.4-5.1); Sodium 141 mMol/L (136-145); Total Protein 5.9 gm/dL (5.7-8.2); eGFR > 60 See Note
[2025-03-17] MEDS: FERROUS SULF 325 MG TABLET PO (04:21)
== END 2025-03-17 04:25 | disposition home or self-care (01) ==
PROVIDERS: Admitting Provider Obstetrics & Gynecology; Visit Provider Obstetrics & Gynecology
DX: O26.893 Other specified pregnancy related conditions, third trimester (principal); R10.30 Lower abdominal pain, unspecified; R53.1 Weakness; Z3A.29 29 weeks gestation of pregnancy
CPT/HCPCS: 36415; 59025; 59899; 80053; 85025; J7030; A9270

== ENCOUNTER 2025-03-21 09:27 | Outpatient (AMB) | payer MEDICAID, SELFPAY ==
--- NOTE | 2025-03-21 09:48 | OBCLNT_ITS ---
Vital Signs 03/21/25 09:49 Height 1.65 m Height Method Stated Weight 94.858 kg Weight Measurement Method Standing Scale BMI 34.7 BP 126/84 Blood Pressure Source Automatic Cuff Blood Pressure Location Left Upper Arm Position Sitting Respiration 20 Pulse 100 Pulse Source Monitor Temp 97.5 F Temp Source Oral Pulse Oximetry (%) 95 Oxygen Delivery Method Room Air Allergies/Home Meds Allergies & Medications Allergies No Known Allergies Allergy (Verified 03/21/25 09:49) Medication Reconciliation aspirin 81 mg tablet,delayed release (Adult Aspirin Regimen) 81 mg PO QDAY #60 tabs 02/21/25 [Rx Confirmed 03/21/25] vits no.130-ferrous fum 27 mg iron-folic acid 800 mcg tablet ( Vitamin) 1 tab PO QDAY pregancy #60 tabs 02/21/25 [Rx Confirmed 03/21/25] ascorbic acid (vitamin C) 500 mg tablet 500 mg PO BID #60 tabs 03/21/25 [Rx] Immunizations Immunizations Flu Vaccine in the Last 12 Months: Yes Date of most recent flu vaccination: 03/21/25 Flu Vaccine Exclusion Criteria: Already Received Care OB Visit Log OB Flowsheet Initial Weight: Not Recorded Date -?-?-?-?-?-?-?-?-?-?-?-?- EGA Weight BP Alb Glu CTX Pres Fundal ht FHR Mov Dilation Station Effacem ent Hx Notes Visit Note 11/13/24 -?-?-?-?-?-?-?-?-?-?-?-?- 11w 2d 83.971 kg 130/89 absent unknown 12 145 absent This is a 23-year-old 2 para 1 for ER follow-up. Patient was seen at [facility] for early vaginal bleeding. She was told she had a ba bchorionic hemorrhage patient denies any bleeding at this time. The report for ultrasound and visit are still pending. Denies cramps denies leaking fluid. Patient did not get her labs as ordered. NIPT and carrier screen today. Discussed SAB precautions and rest. Schedule appointment at [facility] for anatomy scan. Continue prenatals. Comfort measures for nausea. Return in 4 weeks for recheck 12/11/24 -?-?-?-?-?-?-?-?-?-?-?-?- 15w 2d 83.688 kg 131/87 occasional unknown 15 145 active No bleeding today. Denies leaking. Denies contractions. Complains of increased ligament pain. Reports slight movement. Follow-up MFM is in 4 weeks for anatomy scan. SAB precautions reviewed. No sex or heavy lifting. I filled out a form for her [employer]. aFP today. Keep follow-up appointment with MFM for anatomy scan. Return in 4 weeks OB check 01/15/25 -?-?-?-?-?-?-?-?-?-?-?-?- 20w 2d 87.146 kg 123/83 absent unknown 20 146 absent No cramps. Patient was seen in labor and delivery she hit her back. No cramps or bleeding now reports light movement. Patient has MFM appointment this week. Discussed AFP. MFM appointment this week. Discussed labor precautions. Return week for OBC 02/21/25 -?-?-?-?-?-?-?-?-?-?-?-?- 25w 4d 92.646 kg 123/84 absent unknown 25 145 absent No contractions. Reports movement. Denies leaking, bleeding, contractions. Patient has concerns about PIH. With her last she was induced at 39 weeks because of PIH symptoms. P renatal vitamins. Low-dose baby aspirin. Third trimester labs ordered along with TSH, PT PTT and CMP and a 24-hour protein. We discussed signs and symptoms of preeclampsia and I advised patient to check her blood pressure twice a day at home. Patient has follow-up ultrasound in 4 weeks with MFM because needed given good visualization of the baby's heart 03/21/25 -?-?-?-?-?-?-?-?-?-?-?-?- 29w 4d 94.858 kg 126/84 absent unknown 29 147 absent ER follow-up for feeling dizzy and lightheaded. And also prolonged diarrhea. Patient is feeling better today. She was treated with Benadryl and Zofran IV and sent home. Patient stated that she was told to start doing IV iron therapy. Reports movement. Denies leaking, bleeding, contractions Referral for iron transfusions at cancer treatment center. Vitamin C 500 p.o. twice daily to take with iron t wice a day. Discussed iron foods. Increase fluids. Avoid dairy with iron. Tdap and flu today. Discussed labor precautions. And reviewed labs. Return in 3 weeks OB check NANCI Calculator Estimated Delivery Date Method Current WG Current Estimate 06/02/25 LMP (Certain) 29w 4d Other Estimates 06/05/25 Ultrasound #1 29w 1d 06/02/25 Ultrasound #2 29w 4d 06/02/25 Manual 29w 4d final nanci , 03/19: EFW 79% Notes Visit Date: 03/21/25 Last Updated by: Qain Partida CNM 3rd tri lab: 9.5/30, 259, creatinine: 0.38, total protein: 5.7,PT/PTT wnl, A1: 5.3, 1 hr gtt: wnl,rpr;;nr, sono: 02/28: EFW: 79%, Normal ZEN Visit Date: 02/21/25 Last Updated by: Qian Partida CNM 01/26/25: IUP 21w6, Visit Date: 01/15/25 Last Updated by: Qian Partida CNM 01/15: AFP Visit Date: 12/11/24 Last Updated by: Qian Partida CNM NIPT/CF/SMA-. NIPT- 11/03: girl Visit Date: 11/13/24 Last Updated by: Qian Partida CNM 23 yo . LMP 08/26/24. EDC 06/02/25. OB panel: O+,abs-, rpr;;NR, rub imm, hbsag-,hiv-,hc-, GC/CT-, UT-,UA-, / Office Procedures OBC Clinic LOC & Office Proc's Nursing/Assessment Patient Status: Established Patient OB Clinic Nursing Assessment: Medication Reconciliation, Update PMH in EMR and Vital Signs OB Clinic Coordination of Care: Complex Care and Chronic Disease 1-5, Consent,records obtained, informed consent, Education Simp Pt/Fam, 1 Ins Authorization, Lab and Imaging orders, Results/Orders obtained and Staff clarify orders Special Needs: Heart tones Established Patient Charge Established Patient Point Assignment: 150 Established Patient Point Charge: EP Level 4 (120-155) Injection/Vaccine Admin SQ Im Injection: Yes Immunizations flu vac ts 2025-26(6mos up)-PF 45 mcg(15mcg x3)/0.5 mL IM syringe Performing Provider: Prosper Cintron MD Performing Location: [facility] Administered by: Julia Ty MA on 03/21/25 09:51 Dose Route Admin Location Dispensed Lot Number Expiration Date Pack age [facility] [employer] 0.5 mL IM Left Deltoid 0.5 mL [id number] 10/16/25 85031-581-44 [id number] [employer]LAXOSMITHK[employer] VIS Given Date VIS Provided VIS Publication Date 03/21/25 Single Vaccine 24 Eligibility Eligibility Date Funding Source Public Non-[facility] diphth,pertus(acell),tetanus 2.5 Lf unit-8 mcg-5 Lf/0.5mL IM syringe Performing Provider: Prosper Cintron MD Performing Location: [facility] Administered by: Julia Ty MA on 03/21/25 09:50 Dose Route Admin Location Dispensed Lot Number Expiration Date Pack age [facility] [employer] 0.5 mL IM Right Deltoid 0.5 mL [id number] 07/14/27 [id number] GLAXOSMITHKLINE VIS Given Date VIS Provided VIS Publication Date 03/21/25 Single Vaccine 24 Eligibility Eligibility Date [facility] Assessment & Plan Diagnosis / Problem List (1) Anemia complicating : Status: Acute Qualifiers: Trimester: third trimester Qualified Code(s): O99.013 - Anemia complicating , third trimester Plan Referral for iron infusion at cancer treatment center made. Patient to continue iron twice a day with vitamin C. Discussed iron foods. Increase fluids. Discussed labor precautions. Return in 3 weeks OB check. TDAP and flu Additional Plan Follow Up: 4 Weeks
[2025-03-21 09:49] VITALS: BP 126/84; PULSE 100; RESP 20; TEMP 36.4; O2SAT 95; BMI 34.7
== END 2025-03-21 10:14 | disposition home or self-care (01) ==
LOC: HODSOBC 09:27
PROVIDERS: Supervising Provider Advanced Practice Midwife; Visit Provider Advanced Practice Midwife
DX: O09.893 Supervision of other high risk pregnancies, third trimester (principal); O99.013 Anemia complicating pregnancy, third trimester; Z23 Encounter for immunization; Z3A.29 29 weeks gestation of pregnancy
CPT/HCPCS: 90471; 90686; 90715; 96372; 99214; G0463; J9060

== ENCOUNTER 2025-03-21 14:28 | Outpatient (CLI) | payer MEDICAID, SELFPAY ==
[2025-03-21] VITALS (19 sets, daily range): BP systolic 129; BP diastolic 71; PULSE 89–116; RESP 18–98; TEMP 36.7; O2SAT 91–100; BMI 34.7
[2025-03-21] MEDS: FERRIC SOD GLUC INJ 125 MG in SODIUM CHLORIDE 0.9% 100 ML 110 MG IV (15:39)
== END 2025-03-21 17:03 | disposition home or self-care (01) ==
LOC: S4S1 14:31 → S4SX 14:32
PROVIDERS: Referring Provider Advanced Practice Midwife; Visit Provider Advanced Practice Midwife
DX: Z34.83 Encounter for supervision of other normal pregnancy, third trimester (principal); Z36.9 Encounter for antenatal screening, unspecified; Z3A.29 29 weeks gestation of pregnancy
CPT/HCPCS: J2916; J7050

== ENCOUNTER 2025-03-29 11:42 | Observation (INO) | payer MEDICAID, SELFPAY ==
[2025-03-29] VITALS (9 sets, daily range): BP systolic 119; BP diastolic 69; PULSE 81–101; RESP 18–100; TEMP 36.6; O2SAT 97–100; BMI 34.4
[2025-03-29] MEDS: FERRIC SOD GLUC INJ 125 MG in SODIUM CHLORIDE 0.9% 100 ML 110 MG IV (12:30)
== END 2025-03-29 13:27 | disposition home or self-care (01) ==
PROVIDERS: Admitting Provider Advanced Practice Midwife; Visit Provider Advanced Practice Midwife
DX: Z34.83 Encounter for supervision of other normal pregnancy, third trimester (principal); Z3A.30 30 weeks gestation of pregnancy
CPT/HCPCS: 59025; 59899; J2916; J7050

== ENCOUNTER 2025-04-06 22:20 | Observation (INO) | payer MEDICAID, SELFPAY ==
[2025-04-06] VITALS (18 sets, daily range): BP systolic 124–148; BP diastolic 84–96; PULSE 85–105; RESP 18–98; TEMP 36.9; O2SAT 97–100; BMI 35.1
[2025-04-07 00:11] LABS: Bilirubin,Urine Negative (Negative); Blood,Urine Negative (Negative); Clarity,Urine Clear (Clear/Hazy); Collection Type, Urine Clean Catch; Color,Urine Colorless (Lt Yel-Yel); Culture Indicated,Urine Not Indicated; Glucose, Urine Negative (Negative); Ketones,Urine Negative (Negative); Leukocyte Esterase,Urine Positive (Negative); Nitrite,Urine Negative (Negative); PH,Urine 6.5 (5.0-7.0); Protein,Urine Negative (Neg - Trace); RBC,Urine 1 /hpf (0-3); Specific Gravity,Urine 1.003 (1.001-1.035); Squamous Epithelial Cell,Urine < 1 /hpf (0-5); Urobilinogen,Urine Negative mg/dL (0.0-1.0); WBC,Urine 3 /hpf (0-5)
[2025-04-07 00:15] VITALS: BP 119/73; PULSE 91
[2025-04-07 00:30] VITALS: BP 120/75; PULSE 88
== END 2025-04-07 00:47 | disposition home or self-care (01) ==
PROVIDERS: Admitting Provider Obstetrics & Gynecology; Visit Provider Obstetrics & Gynecology
DX: O26.893 Other specified pregnancy related conditions, third trimester (principal); Z3A.31 31 weeks gestation of pregnancy; R10.20 Pelvic and perineal pain unspecified side
CPT/HCPCS: 59025; 59899; 81001; 87086

== ENCOUNTER 2025-04-09 12:33 | Outpatient (CLI) | payer MEDICAID, SELFPAY ==
[2025-04-09] VITALS (10 sets, daily range): BP systolic 125; BP diastolic 84; PULSE 88–104; RESP 20–98; TEMP 36.7; O2SAT 98–99; BMI 35.4
[2025-04-09] MEDS: FERRIC SOD GLUC INJ 125 MG in SODIUM CHLORIDE 0.9% 100 ML 110 MG IV (13:27)
== END 2025-04-09 14:35 | disposition home or self-care (01) ==
LOC: S4S1 12:34 → S4SX 12:35
PROVIDERS: Referring Provider Obstetrics & Gynecology; Visit Provider Obstetrics & Gynecology
DX: Z34.83 Encounter for supervision of other normal pregnancy, third trimester (principal); Z3A.32 32 weeks gestation of pregnancy
CPT/HCPCS: 59025; J2916; J7050

== ENCOUNTER 2025-04-17 10:07 | Outpatient (AMB) | payer MEDICAID, SELFPAY ==
--- NOTE | 2025-04-17 10:16 | OBCLNT_ITS ---
Vital Signs 04/17/25 10:17 Height 1.65 m Height Method Stated Weight 97.182 kg Weight Measurement Method Standing Scale BMI 35.6 BP 123/81 Blood Pressure Source Automatic Cuff Blood Pressure Location Left Upper Arm Position Sitting Respiration 20 Pulse 105 H Pulse Source Monitor Temp 98.0 F Temp Source Oral Pulse Oximetry (%) 97 Oxygen Delivery Method Room Air Allergies/Home Meds Allergies & Medications Allergies No Known Allergies Allergy (Verified 04/17/25 10:27) Medication Reconciliation aspirin 81 mg tablet,delayed release (Adult Aspirin Regimen) 81 mg PO QDAY #60 tabs 02/21/25 [Rx Confirmed 04/17/25] vits no.130-ferrous fum 27 mg iron-folic acid 800 mcg tablet ( Vitamin) 1 tab PO QDAY pregancy #60 tabs 02/21/25 [Rx Confirmed 04/17/25] ascorbic acid (vitamin C) 500 mg tablet 500 mg PO BID #60 tabs 03/21/25 [Rx Confirmed 04/17/25] Immunizations Immunizations Flu Vaccine in the Last 12 Months: Yes Date of most recent flu vaccination: 03/21/25 Flu Vaccine Exclusion Criteria: Already Received Care OB Visit Log OB Flowsheet Initial Weight: Not Recorded Date -?-?-?-?-?-?-?-?-?-?-?-?- EGA Weight BP Alb Glu CTX Pres Fundal ht FHR Mov Dilation Station Effacement Hx Notes Visit Note 11/13/24 -?-?-?-?-?-?-?-?-?-?-?-?- 11w 2d 83.971 kg 130/89 absent unknown 12 145 absent This is a 23-year-old 2 para 1 for ER follow-up. Patient was seen at [facility] for early vaginal bleeding. She was told she had a subchorionic hemorrhage patient denies any bleeding at this time. The report for ultrasound and visit are still pending. Denies cramps denies leaking fluid. Patient did not get her labs as ordered. NIPT and carrier screen today. Discussed SAB precautions and rest. Schedule appointment at [facility] for anatomy scan. Continue prenatals. Comfort measures for nausea. Return in 4 weeks for recheck 12/11/24 -?-?-?-?-?-?-?-?-?-?-?-?- 15w 2d 83.688 kg 131/87 occasional unknown 15 145 active No bleeding today. Denies leaking. Denies contractions. Complains of increased ligament pain. Reports slight movement. Follow-up MFM is in 4 weeks for anatomy scan. SAB precautions reviewed. No sex or heavy lifting. I filled out a form for her [employer] aFP today. Keep follow-up appointment with MFM for anatomy scan. Return in 4 weeks OB check 01/15/25 -?-?-?-?-?-?-?-?-?-?-?-?- 20w 2d 87.146 kg 123/83 absent unknown 20 146 absent No cramps. Patient was seen in labor and delivery she hit her back. No cramps or bleeding now reports light movement. Patient has MFM appointment this week. Discussed AFP. MFM appointment this week. Discussed labor precautions. Return week for OBC 02/21/25 -?-?-?-?-?-?-?-?-?-?-?-?- 25w 4d 92.646 kg 123/84 absent unknown 25 145 absent No contractions. Reports movement. Denies leaking, bleeding, contractions. Patient has concerns about PIH. With her last she was induced at 39 weeks because of PIH symptoms. P renatal vitamins. Low-dose baby aspirin. Third trimester labs ordered along with TSH, PT PTT and CMP and a 24-hour protein. We discussed signs and symptoms of preeclampsia and I advised patient to check her blood pressure twice a day at home. Patient has follow-up ultrasound in 4 weeks with MFM because needed given good visualization of the baby's heart 03/21/25 -?-?-?-?-?-?-?-?-?-?-?-?- 29w 4d 94.858 kg 126/84 absent unknown 29 147 absent ER follow-up for feeling dizzy and lightheaded. And also prolonged diarrhea. Patient is feeling better today. She was treated with Benadryl and Zofran IV and sent home. Patient stated that she was told to start doing IV iron therapy. Reports movement. Denies leaking, bleeding, contractions Referral for iron transfusions at cancer treatment center. Vitamin C 500 p.o. twice daily to take with iron twice a day. Discussed iron foods. Increase fluids. Avoid dairy with iron. Tdap and flu today. Discussed labor precautions. And reviewed labs. Return in 3 weeks OB check 04/17/25 -?-?-?-?-?-?-?-?-?-?-?-?- 33w 3d 97.182 kg 123/81 absent unknown 33 147 active Fetus is active. Reports good movement. Denies leaking or bleeding. Increased pressure no contractions patient reports to have some visual changes occasionally. Also she has a poor diet and skips meals and is not intaking proteins or liquids Patient has a follow-up ultrasound at [facility] for next week for growth. Patient to labor and delivery for PIH workup. Discussed danger signs symptoms and ER precautions. Discussed kick count twice a day. Reinforced the need to increase proteins and regular diet and increase fluids return in a week to 2 weeks OB check. Patient completed iron IV x 3 NANCI Calculator Estimated Delivery Date Method Current WG Current Estimate 06/02/25 LMP (Certain) 33w 3d Other Estimates 06/05/25 Ultrasound #1 33w 0d 06/02/25 Ultrasound #2 33w 3d 06/02/25 Manual 33w 3d final nanci , 03/19: EFW 79% Notes Visit Date: 03/21/25 Last Updated by: Qian Partida CNM 3rd tri lab: 9.09/15, 259, creatinine: 0.38, total protein: 5.7,PT/PTT wnl, A1: 5.3, 1 hr gtt: wnl,rpr;;nr, sono: 02/28: EFW: 79%, Normal ZEN Visit Date: 02/21/25 Last Updated by: Qian Partida CNM 01/26/25: IUP 21w6, Visit Date: 01/15/25 Last Updated by: Qian Partida CNM 01/15: AFP Visit Date: 12/11/24 Last Updated by: Qian Partida CNM NIPT/CF/SMA-. NIPT- 11/03: girl Visit Date: 11/13/24 Last Updated by: Qian Partida CNM 23 yo . LMP 08/26/24. EDC 06/02/25. OB panel: O+,abs-, rpr;;NR, rub imm, hbsag-,hiv-,hc-, GC/CT-, UT-,UA-, Office Procedures OBC Clinic LOC & Office Proc's Nursing/Assessment Patient Status: Established Patient OB Clinic Nursing Assessment: Medication Reconciliation, Update PMH in EMR and Vital Signs OB Clinic Coordination of Care: Complex Care and Chronic Disease 1-5, Consent,records obtained, informed consent, Education Simp Pt/Fam, 1 Ins Authorization, Lab and Imaging orders, Results/Orders obtained and Staff clarify orders Special Needs: Heart tones Established Patient Charge Established Patient Point Assignment: 150 Established Patient Point Charge: EP Level 4 (120-155) Assessment & Plan Diagnosis / Problem List (1) Encounter for supervision of high risk in third trimester, antepartum: Status: Acute (2) Anemia complicating : Status: Acute Qualifiers: Trimester: third trimester Qualified Code(s): O99.013 - Anemia complicating , third trimester Plan Continue iron twice a day. Discussed labor precautions. Kick count twice a day. Discussed PIH precautions she will stop the low-dose baby aspirin. Patient to labor and delivery for NST BPP and PIH eval. Keep appointment with MFM next week and return in 2 week OB check Additional Plan Follow Up: 2 Weeks (obc)
[2025-04-17 10:17] VITALS: BP 123/81; PULSE 105; RESP 20; TEMP 36.7; O2SAT 97; BMI 35.6
== END 2025-04-17 10:51 | disposition home or self-care (01) ==
LOC: HODSOBC 10:07
PROVIDERS: Supervising Provider Advanced Practice Midwife; Visit Provider Advanced Practice Midwife
DX: O09.893 Supervision of other high risk pregnancies, third trimester (principal); O99.013 Anemia complicating pregnancy, third trimester; Z3A.33 33 weeks gestation of pregnancy
CPT/HCPCS: 99214; G0463

== ENCOUNTER 2025-04-17 11:44 | Outpatient (CLI) | payer MEDICAID, SELFPAY ==
[2025-04-17] VITALS (10 sets, daily range): BP systolic 123–134; BP diastolic 72–83; PULSE 86–97; RESP 16–98; TEMP 36.6; O2SAT 97–99; BMI 35.6
--- NOTE | 2025-04-17 11:50 | XR_ITS ---
Study: Biophysical profile. INDICATION: PIH evaluation Technique: Grayscale ultrasound with color flow Doppler. 164 images at 1233 hours 17 April 2025. FINDINGS: Biophysical profile scores of 2 are awarded for body movement, breathing motion, tone and quantitative amniotic fluid volume. The amniotic fluid index measures 19.4 cm and the heart rate was 153/min. IMPRESSION: Biophysical profile score 8/8.
[2025-04-17 12:35] LABS: Basophils # (Auto) 0.0 Thou/mm3 (0.0-0.2); Basophils % (Auto) 0 % (0-2.5); Eosinophils # (Auto) 0.1 Thou/mm3 (0.0-0.5); Eosinophils % (Auto) 1 % (0-10); Hematocrit 28.3 % (36.0-46.0); Hemoglobin 9.5 g/dL (12.0-16.0); Immature Granulocytes Auto 0.14 Thou/mm3 (0.00-0.00); Lymphocytes # (Auto) 1.6 Thou/mm3 (1.0-4.8); Lymphocytes % (Auto) 16 % (10-50); Mean Corpuscular HGB Conc 33.6 g/dl (31.0-37.0); Mean Corpuscular Hemoglobin 28.4 pg (25.0-35.0); Mean Corpuscular Volume 85 fL (80-100); Monocytes # (Auto) 0.6 Thou/mm3 (0.0-0.8); Monocytes % (Auto) 6 % (0-12); Neutrophils # (Auto) 7.5 Thou/mm3 (1.8-7.7); Neutrophils % (Auto) 75 % (37-80); Nucleated Red Blood Cell # 0.00 Thou/mm3 (0.00-0.00); Nucleated Red Blood Cell % 0 /100 WBC (0); Platelet Count 244 Thou/mm3 (140-440); RDW Standard Deviation 44.8 fL (36.4-46.3); Red Blood Count 3.34 Miln/mm3 (4.00-5.20); White Blood Count 10.0 Thou/mm3 (3.6-11.0)
[2025-04-17 12:55] LABS: INR 1.0 (0.9-1.3); Partial Thromboplastin Time 27.6 Seconds (22.0-36.0); Prothrombin Time 10.3 Seconds (9.0-12.2)
[2025-04-17 13:07] LABS: Creatinine,Random Urine 83 mg/dL (30-125); Protein Total, Random Urine 20 mg/dL (1-14)
[2025-04-17 13:09] LABS: Alanine Aminotransferase 7 U/L (10-49); Albumin, Serum 3.9 gm/dL (3.5-5.0); Albumin/Globulin Ratio 1.6 (1.2-2.2); Alkaline Phosphatase 91 U/L (46-116); Anion Gap 9 (7-16); Aspartate Amino Transferase 12 U/L (0-34); BUN/Creatinine Ratio 13 Ratio (12-20); Bilirubin,Total 0.5 mg/dL (0.3-1.2); Blood Urea Nitrogen < 5 mg/dL (9-23); Calcium 9.0 mg/dL (8.3-10.6); Calcium (Corrected) 9.1 mg/dL (8.5-10.1); Carbon Dioxide 25.6 mMol/L (20.0-31.0); Chloride 106 mMol/L (98-107); Creatinine (Component) 0.4 mg/dL (0.6-1.3); Estimated Creatinine Clearance 250.3 mL/min (>60); Globulin 2.5 gm/dL (2.3-3.5); Glucose 82 mg/dL (74-106); LDH (Lactate Dehydrogenase) 155 U/L (120-246); Osmolality,Calculated 277 (275-295); Potassium 3.8 mMol/L (3.4-5.1); Sodium 141 mMol/L (136-145); Total Protein 6.4 gm/dL (5.7-8.2); Uric Acid 4.8 mg/dL (3.1-7.8); eGFR > 60 See Note
== END 2025-04-17 14:00 | disposition home or self-care (01) ==
LOC: S4S1 11:44 → S4SX 11:45
PROVIDERS: Referring Provider Obstetrics & Gynecology; Visit Provider Obstetrics & Gynecology
DX: Z34.83 Encounter for supervision of other normal pregnancy, third trimester (principal); Z36.89 Encounter for other specified antenatal screening; Z3A.33 33 weeks gestation of pregnancy
CPT/HCPCS: 36415; 59025; 76819; 80053; 82570; 83615; 84156; 84550; 85025; 85610; 85730